=== PATIENT | male | born 2000 | race Caucasian/White ===

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

== ENCOUNTER 2023-12-20 02:58 | Emergency (ER) | payer OTHER ==
[~2023-12-20] VITALS: Ht 182.9 cm; Wt 74.8 kg
[2023-12-20 03:20] VITALS: BP_SYST 139; PULSE 100; RESP 16; TEMP 98; O2SAT 100
[2023-12-20] MEDS ORDERED: IBUP-1969 PO (03:24)
[2023-12-20] MEDS ORDERED: AUG875 PO (03:24)
[2023-12-20] MEDS: IBUPROFEN 600 MG TABLET PO ONE (03:35)
[2023-12-20 03:50] VITALS: BP_SYST 139; PULSE 100; RESP 16; TEMP 98; O2SAT 100
== END 2023-12-20 03:47 | disposition home or self-care (01) ==
LOC: SED 02:58
DX: S61.210A Laceration without foreign body of right index finger without damage to nail, initial encounter (principal); Z79.899 Other long term (current) drug therapy; W50.3XXA Accidental bite by another person, initial encounter; Y93.89 Activity, other specified; Y92.89 Other specified places as the place of occurrence of the external cause; Y99.8 Other external cause status
CPT/HCPCS: 99283